=== PATIENT | male | born 1995 | race Caucasian/White ===

== ENCOUNTER 2020-03-08 13:14 | Emergency (ER) | payer OTHER ==
[~2020-03-08] VITALS: Ht 182.9 cm; Wt 68.0 kg
== END 2020-03-08 17:56 | disposition home or self-care (01) ==
LOC: ER 13:14
DX: S00.85XA Superficial foreign body of other part of head, initial encounter (principal); Z23 Encounter for immunization; W45.8XXA Other foreign body or object entering through skin, initial encounter
CPT/HCPCS: 90471; 90714; 99283-25